=== PATIENT | female | born 1945 | race Caucasian/White ===

== ENCOUNTER 2018-07-23 05:47 | Inpatient (IN) ==
[2018-07-23] MEDS ORDERED: Sodium Chlor 0.9% Inj 500 ML IV.CONT ONE (06:45)
[2018-07-23] MEDS ORDERED: Sod Chloride 0.9% Inj 1,000 ML IV.CONT SCH ×2 (06:45→10:00)
[2018-07-23] MEDS ORDERED: Metoprolol Tartrate 25 MG Tablet PO ONE (06:45)
[2018-07-23] MEDS ORDERED: Mupirocin 2% Nasal Oint Topical Syringe EACH NARE SCH (06:45)
[2018-07-23] MEDS ORDERED: Chlorhexidine Gluconate 2% 1 Pack (2 Cloths) TOPICAL SCH (06:45)
[2018-07-23] MEDS ORDERED: Chlorhexidine Gluconate 2% 1 Pack (2 Cloths) TOPICAL ONE (06:45)
[2018-07-23] MEDS ORDERED: Aspirin 325 MG Tablet PO SCH (06:45)
[2018-07-23] MEDS ORDERED: Heparin 10,000 UNITS/10 ML Vial (for IV use) ONE (06:46)
[2018-07-23] MEDS ORDERED: Protamine Sulfate Inj 50 MG/5 ML Vial ONE (06:46)
[2018-07-23] MEDS ORDERED: ceFAZolin 2 GM Premix Inj 2 GM/50 ML PIGGYBACK IV.SIG ONE (06:46)
[2018-07-23] MEDS ORDERED: ceFAZolin 2 GM Premix Inj 2 GM/50 ML PIGGYBACK IV.SIG SCH (07:00)
[2018-07-23 07:19] LABS: Baso % (Auto) 1.2 % (0.0-2.0); Eos # (Auto) 0.2 th/mm3 (0.0-0.4); Hematocrit 36.4 % (35.0-46.0); Hemoglobin 11.9 gm/dL (11.6-15.3); Lymph # (Auto) 0.6 th/mm3 (1.0-4.8); Lymph % (Auto) 16.6 % (9.0-44.0); Mean Corpuscular HGB Conc 32.8 % (32.0-36.0); Mean Corpuscular Hemoglobin 28.6 pg (27.0-34.0); Mean Corpuscular Volume 87.4 fL (80.0-100.0); Mean Platelet Volume 7.6 fL (7.0-11.0); Mono # (Auto) 0.3 th/mm3 (0.0-0.9); Neut # (Auto) 2.3 th/mm3 (1.8-7.7); Neut % (Auto) 68.2 % (16.0-70.0); Platelet Count 158 th/mm3 (150-450); Red Blood Count 4.16 mil/mm3 (4.00-5.30); Red Cell Distribution Width 17.4 % (11.6-17.2); White Blood Count 3.4 th/mm3 (4.0-11.0)
[2018-07-23 07:31] LABS: Activated Partial Thrombo Time 29.8 sec (23.4-31.7); INR 1.1 Ratio; Prothrombin Time 10.9 sec (9.8-11.6)
[2018-07-23 07:41] LABS: Anion Gap 7 meq/L (5-15); Blood Urea Nitrogen 16 mg/dL (7-18); Calcium 8.9 mg/dL (8.5-10.1); Carbon Dioxide 29.6 meq/L (21.0-32.0); Chloride 107 meq/L (98-107); Glomerular Filtration Rate Greater Than 89 mL/min (>89); Glucose,Random 100 mg/dL (74-106); Potassium 3.4 meq/L (3.5-5.1); Sodium 144 meq/L (136-145)
--- NOTE | 2018-07-23 07:47 | P.HPCA ---
History of Present Illness Service: Cardiology Primary Care Physician: Sean Hager MD Chief Complaint: Severe aortic valve stenosis History of Present Illness: This is a 73-year-old female with past medical history of arthritis, hyperlipidemia, hypertension, osteoporosis, thyroid disease, and recent colonic bleeding who was diagnosed with severe aortic valve stenosis. Patient underwent cardiac catheterization which did not reveal hemodynamically significant obstructive coronary disease. Due to cardiovascular risk factors she was felt to be higher risk for surgical aortic valve replacement and referred for consideration of transcatheter aortic valve replacement. Patient has been cleared by gastroenterology after recent gastrointestinal bleeding episode. Patient has been compliant with both aspirin and Plavix over the course of the past 2 weeks without any bleeding. Her hemoglobins been stable. Patient is here today for elective transcatheter aortic valve replacement. - Diagnosis (1) Severe aortic valve stenosis (2) Chronic diastolic (congestive) heart failure Inpatient Certification: I certify that the inpatient services were ordered in accordance with Medicare regulations governing the order. This includes certification that hospital inpatient services are reasonable and necessary and in the case of services not specified as inpatient-only under 42 CFR 419.22(n), that they are appropriately provided as inpatient services in accordance to with the 2-midnight benchmark under 43 CFR 412.3(e) Estimated Total Length of Stay (Days): 3 Plans for Post Hospital Care: Home Review of Systems All other systems reviewed negative except as stated in [facility] - History History Provided By: Patient - Medical History Medical History: Medical History (Last Updated 07/23/18 @ 06:51 by Vida Nieves RN) GERD (gastroesophageal reflux disease) HTN (hypertension) History of GI bleed Hyperlipidemia Hypothyroid Swelling of lower extremity Uterine cancer - Tobacco History Smoking Status: Never smoker - Alcohol History How Often Do You Have a Drink Containing Alcohol: 2 to 3 times a week Medications and Allergies Active Medications: Active Medications Aspirin (Aspirin) 325 mg PO INSURANCE ACCOUNT REPRESENTATIVE KORY Stop: 07/26/18 06:36 Chlorhexidine Gluconate (Chlorhexidine 2% Cloth) 3 pack TOPICAL INSURANCE ACCOUNT REPRESENTATIVE KORY Stop: 07/26/18 06:36 Lactated Ringer's (Lr 1000 Ml Inj) 1,000 mls @ 30 mls/hr IV.CONT .Q24H ONE Stop: 07/24/18 06:44 Sodium Chloride (Ns Inj) 500 mls @ 30 mls/hr IV.CONT .[id number] ONE Stop: 07/23/18 23:24 Cefazolin Sodium/Dextrose (Ancef 2 Gm Premix Inj) 2 gm in 50 mls @ 100 mls/hr IV.SIG ONCE [facility] Stop: 07/26/18 06:36 Sodium Chloride (Ns Inj) 1,000 mls @ 125 mls/hr IV.CONT .Q8H [facility] Mupirocin (Bactroban 2% Nasal Oint) 1 applicatio EACH NARE INSURANCE ACCOUNT REPRESENTATIVE [facility] Stop: 07/26/18 06:36 Povidone Iodine (Betadine 5% Antisepsis Kit) 1 applicatio TOPICAL INSURANCE ACCOUNT REPRESENTATIVE [facility] Stop: 07/26/18 06:36 Allergies Allergy/AdvReac Type Severity Reaction Status Date / Time Sulfa (Sulfonamide Allergy Severe HIVES Verified 07/23/18 06:40 Antibiotics) Home Medications Medication Instructions Recorded Confirmed Type amlodipine 5 mg PO DAILY 07/23/18 07/23/18 History aspirin [Aspirin Low Dose] 81 mg PO DAILY 07/23/18 07/23/18 History atorvastatin 20 mg PO DAILY 07/23/18 07/23/18 History clopidogrel 75 mg PO DAILY 07/23/18 07/23/18 History famotidine 20 mg PO BID 07/23/18 07/23/18 History folic acid 1 mg PO DAILY 07/23/18 07/23/18 History leflunomide 20 mg PO DAILY 07/23/18 07/23/18 History levothyroxine 100 mcg PO DAILY 07/23/18 07/23/18 History paroxetine HCl 40 mg PO DAILY 07/23/18 07/23/18 History trazodone 50 mg PO DAILY 07/23/18 07/23/18 History Exam Vital signs: Vital Signs 07/23/18 06:44 Temperature 97.9 F Pulse Rate 78 Respiratory Rate 16 Blood Pressure 129/82 Pulse Oximetry 95 Intake & Output 07/22/18 07/23/18 07/23/18 18:59 06:59 18:59 Weight 67.8 kg Other: Weight On Admission 67.8 kg - Constitutional no acute distress - Routine HEENT Exam Eye: Present: EOMI, PERRL ENT: Present: mucous membranes moist - Routine Neck Exam Absent: JVD - Routine Respiratory Exam Present: CTA bilaterally - Routine Cardiovascular Exam Present: RRR, murmur - Routine Abdominal Exam Present: soft - Routine Extremities Exam Absent: edema - Routine Neurological Exam Present: oriented X3, CN II-XII intact. Absent: sensory deficit, motor deficit Results 07/23/18 06:25 07/23/18 06:25 CBC 07/23/18 Range/Units 06:25 WBC 3.4 L (4.0-11.0) th/mm3 RBC 4.16 (4.00-5.30) mil/mm3 Hgb 11.9 (11.6-15.3) gm/dL Hct 36.4 (35.0-46.0) % Plt Count 158 (150-450) th/mm3 Neut # (Auto) 2.3 (1.8-7.7) th/mm3 Lymph # (Auto) 0.6 L (1.0-4.8) th/mm3 Johnston # (Auto) 0.3 (0.0-0.9) th/mm3 Eos # (Auto) 0.2 (0.0-0.4) th/mm3 Baso # (Auto) 0.0 (0.0-0.2) th/mm3 Intake and Output 07/22/18 07/23/18 07/23/18 22:59 06:59 14:59 Other: Weight 67.8 kg Weight On Admission 67.8 kg EKG interpretations - Dysrhythmias Sinus rhythms and dysrhythmias: sinus rhythm Caprini VTE Risk Assessment Caprini VTE Risk Assessment: Moderate/High Risk (score >= 2) Caprini Risk Assessment Model: Point Value = 1 Point Value = 2 Point Value = 3 Point Value = 5 Age 41-60 Minor surgery BMI > 25 kg/m2 Swollen legs Varicose veins or History of unexplained or recurrent spontaneous Oral contraceptives or hormone replacement Sepsis (< 1 month) Serious lung disease, including pneumonia (< 1 month) Abnormal pulmonary function Acute myocardial infarction Congestive heart failure (< 1 month) History of inflammatory bowel disease Medical patient at bed rest Age 61-74 Arthroscopic surgery Major open surgery (> 45 min) Laparoscopic surgery (> 45 min) Malignancy Confined to bed (> 72 hours) Immobilizing plaster cast Central venous access Age >= 75 History of VTE Family history of VTE Factor V Leiden Prothrombin [id number] Lupus anticoagulant Anticardiolipin antibodies Elevated serum homocysteine Heparin-induced thrombocytopenia Other congenital or acquired thrombophilia Stroke (< 1 month) Elective arthroplasty Hip, pelvis, or leg fracture Acute spinal cord injury (< 1 month) Prophylaxis Regimen: Total Risk Factor Score Risk Level Prophylaxis Regimen 0-1 Low Early ambulation 2 Moderate Order ONE of the following: *Sequential Compression Device (SCD) *Heparin 5000 units SQ BID 3-4 Higher Order ONE of the following medications: *Heparin 5000 units SQ TID *Enoxaparin/Lovenox 40 mg SQ daily (WT < 150 kg, CrCl > 30 mL/min) *Enoxaparin/Lovenox 30 mg SQ daily (WT < 150 kg, CrCl > 10-29 mL/min) *Enoxaparin/Lovenox 30 mg SQ BID (WT < 150 kg, CrCl > 30 mL/min) AND/OR *Sequential Compression Device (SCD) 5 or more Highest Order ONE of the following medications: *Heparin 5000 units SQ TID (Preferred with Epidurals) *Enoxaparin/Lovenox 40 mg SQ daily (WT < 150 kg, CrCl > 30 mL/min) *Enoxaparin/Lovenox 30 mg SQ daily (WT < 150 kg, CrCl > 10-29 mL/min) *Enoxaparin/Lovenox 30 mg SQ BID (WT < 150 kg, CrCl > 30 mL/min) AND *Sequential Compression Device (SCD) Assessment and Plan - Assessment (1) Severe aortic valve stenosis Code(s): I35.0 - Nonrheumatic aortic (valve) stenosis Status: Acute (2) Chronic diastolic (congestive) heart failure Code(s): I50.32 - Chronic diastolic (congestive) heart failure Status: Acute - Plan This is a 73-year-old female with severe aortic valve stenosis and intermediate risk for surgical aortic valve replacement who was referred for transcatheter aortic valve replacement. Preoperative evaluation: STS score 3.2% [place] [employer] functional class III symptoms Body mass index 28.5 Frailty 3/4 Electrocardiogram normal sinus rhythm Pulmonary function test from May 22, 2018 shows an FEV1 of 1.16 showing mild ventilatory defect Echocardiogram from May 15, 2018 shows jet velocity 4.05 m/seconds, mean gradient of 35 mmHg, aortic valve area 0.6 cm, ejection fraction of 55-60% Cardiac catheterization on May 22, 2018 revealed no significant obstructive coronary disease Computed tomographic analysis from May 22, 2018 shows short annulus diameter 21.6 mm, long anus diameter 27.9 mm, annular area 486.9 mm square, sinus of Valsalva diameter 33.9 mm, sinotubular junction 28.2 mm, left coronary height 13.7 mm, right coronary height 16.1 mm, implant angle left anterior oblique 18/caudal 15 degrees, minimal luminal diameter in the right iliac system is 8.8 mm and on the left of 7.5 mm Patient is intermediate risk We will plan to implant an Miller 26 mm Marychuy S3 valve via a right common femoral arterial approach. Risk benefits and alternatives were discussed with the patient and the family. Patient is agreeable to proceed.
--- NOTE | 2018-07-23 09:37 | P.OP ---
Date of procedure: 07/23/18 Anesthesia: GETA Surgeon: Ady Mcfadden MD Operation and Findings: PREOPERATIVE DIAGNOSIS: 1. Severe Symptomatic Aortic stenosis. 2. CHF 3. Mild aortic Insufficiency 4. Right bundle branch block POSTOPERATIVE DIAGNOSIS: Same OPERATION PERFORMED: 1. Transcatheter Aortic Valve Replacement (TAVR) with an Miller 26 mm Marychuy 3 Tissue Valve. 2. Balloon Aortic Valvuloplasty 3. Aortogram. 4. Percutaneous left femoral Vein Access and Bilateral Common Femoral Artery Access 5. Perclose closure of right Common Femoral artery. 6. Mynx closure of right Common Femoral artery and vein. 7. Fluoroscopy SURGEON: Ady Mcfadden MD CO-SURGEON: Johnathon Miaer MD OPERATIONS WELDER SURGEON: None SERVICE CREW SUPERVISOR: OMID Walter MD ANESTHESIA: GETA PROCEDURE: The risks, benefits, complications, treatment options, and expected outcomes were discussed with the patient. The possibilities of reaction to medication, pulmonary aspiration, perforation of viscus, bleeding, recurrent infection, the need for additional procedures, failure to diagnose a condition, and creating a complication requiring transfusion or operation were discussed with the patient. The patient concurred with the proposed plan, giving informed consent. The site of surgery properly noted/marked. The patient was taken to the hybrid operating room and the procedure verified as Transcatheter Aortic Valve Replacement. A Time Out was held and the above information confirmed. Standard monitoring lines and John catheter were placed. General anesthesia was induced. The patient was prepped and draped in a sterile fashion. Initially, the left femoral arterial and venous access was acquired using a Seldinger percutaneous technique. The details of this procedure were dictated under separate note by cardiology. Once a pigtail was positioned in the aortic annulus and a temporary transvenous pacemaker wire was placed in the right ventricular apex and tested, the right femoral artery was accessed using a needle followed by a guidewire under fluoroscopic guidance. The patient was heparinized and 2 Perclose devices deployed for later closure. Serial dilators were used to dilate the right femoral artery to 14 Georgian caliber. The Miller sheath was then inserted into the external iliac artery up to the distal abdominal aorta. Arch aortography was performed to define the implant view. A balloon aortic valvuloplasty was then performed using a 23 x 4 balloon with rapid pacing. A 26 Miller Marychuy 3 transcatheter aortic valve was then positioned in the annulus and deployed with the patient being rapidly paced. Following deployment, the valve apparatus was withdrawn and arch aortography and MACHELLE were performed to assess the valve. The valve had no perivalvular leak. Gradients were then measured and the sheath was removed while securing the Perclose sutures for hemostasis. Protamine was administered. The left arterial and Venous access sites were closed using the Mynx device. Sterile dressings were placed. At the end of the operation, all sponge, instruments, and needle counts were correct. The patient was transferred to the CVICU in stable condition. Findings: No PVL Mild to moderate mitral insufficiency Implants: 26 Marychuy 3 tissue valve Complications: None Disposition: to CVICU in stable condition
[2018-07-23] MEDS ORDERED: hydrALAZINE HCl Inj 20 MG/ML Vial IV.PUSH PRN (09:53)
[2018-07-23] MEDS ORDERED: Morphine Sulfate Inj 2 MG/ML Vial IV.PUSH PRN (09:53)
[2018-07-23] MEDS ORDERED: Atropine Inj 1 MG/ML Vial IV.PUSH PRN (09:53)
[2018-07-23] MEDS ORDERED: Acetaminophen 325 MG Tablet PO PRN (09:53)
[2018-07-23] MEDS ORDERED: Naloxone Inj 0.4 MG/ML Vial ONE (09:59)
--- NOTE | 2018-07-23 10:23 | P.PCN ---
Date of procedure: 07/23/18 Pre-op diagnosis: Severe aortic valve stenosis Procedure: curing machine operator: Johnathon Maier MD Primary Surgeon: Ady Mcfadden MD Procedures performed: 1. Fluoroscopy with interpretation 2. Left heart catheterization 3. Ascending aortography 4. Temporary transvenous pacemaker placement 5. Transesophageal echocardiogram 6. Aortic balloon valvuloplasty 7. Transcatheter aortic valve replacement with Miller 26 mm Marychuy S3 bioprosthetic valve Methods: Risks, benefits, and alternatives were discussed with the patient. Patient understood and consented to the procedure. Patient was brought into the operating room and placed on the operating table. Bilateral groins and chest were prepped and draped. Under fluoroscopic guidance the left common femoral artery was cannulated and a 5 Somali 11 cm sheath was placed without difficulty. Left femoral vein was accessed and a 5 Somali 11 cm sheath was placed without difficulty. Right common femoral artery was cannulated under fluoroscopic and angiographic guidance through using a micropuncture sheath. Angiography confirmed appropriate placement. An 8 Somali sheath was placed without difficulty. 2 Perclose devices were deployed in a pre-close manner. The 14 Somali Miller sheath was then advanced up over the wire through the iliac system without difficulty into the descending abdominal aorta. Temporary transvenous pacemaker placement: A 5 Somali balloontipped temporary transvenous pacemaker was advanced under fluoroscopic guidance to the right internal jugular sheath to the right ventricular apex. Appropriate pacing and capture was confirmed and utilized during the procedure for rapid ventricular pacing. Transesophageal echocardiogram: Please see detailed separate report Ascending aortography: Ascending aortography was performed using an 5 Somali angled pigtail catheter advanced to the left common femoral arterial sheath to the level of the descending aorta and its the right coronary cusp. Ascending aortography was performed which showed 3 leaflets and parallax view. The descending aorta was not significantly dilated. Left heart catheterization: A 5 Somali AL-1 catheter was advanced through the right common femoral sheath to the level of the descending aorta a 0.035 inch Amplatz straight tip Super Stiff wire was then advanced across the aortic valve with some difficulty. The AL-1 catheter was advanced into the left ventricle. A 260 cm 0.035 inch standard J-wire was then advanced to the left ventricular apex and the AL-1 catheter removed. A 5 Somali angled pigtail catheter was then advanced over the J-wire into the left ventricular apex and the J-wire removed. A 0.035 inch 260 cm [employer] Confida wire was then advanced to the left ventricular apex through the pigtail catheter, and the pigtail catheter removed. Aortic balloon valvuloplasty: A 23 mm x 40 mm Miller valvuloplasty balloon was prepped. The balloon was then advanced over the [employer] Confida wire to the level of the ascending aorta and across the aortic valve. Under rapid ventricular pacing at 180 bpm the aortic valvuloplasty balloon was deployed. Repeat transesophageal echocardiogram did reveal moderate aortic regurgitation, but no pericardial effusion. Patient remained hemodynamically stable. Transcatheter aortic valve replacement: A 26 mm Miller Marychuy S3 was advanced through the right common femoral sheath to the level of the descending aorta. The balloon was pulled back into the stent valve. The device was then advanced up and over the arch to the level of the ascending aorta and across the aortic valve. The pusher component was pulled back. Appropriate positioning was confirmed with a sending aortography and fluoroscopy. Under rapid ventricular pacing, the transcatheter aortic valve was slowly deployed. Immediate post deployment transesophageal echocardiogram revealed appropriate positioning. There was no perivalvular leak or pericardial effusion. Patient tolerated the procedure with good hemodynamic stability. The delivery sheath was then removed. The right common femoral arterial sheath was removed and 2 Perclose devices deployed with good hemostasis. The left common femoral artery and venous sheaths were also removed and 2 Vascade closure devices were deployed with good hemostasis. Conclusions: 1. Severe apache aortic valve stenosis 2. Successful transcatheter aortic valve replacement with a bioprosthetic 26 mm Miller Marychuy S3 valve 3. Successful aortic balloon valvuloplasty Plan: We will monitor the patient closely for any immediate postprocedural complications. We will consult electrophysiology for evaluation of postprocedure heart rhythm. We will obtain a limited transthoracic echocardiogram. We will initiate antiplatelet therapy with aspirin and Plavix. Patient be transferred to the cardiovascular intensive care unit for further monitoring.
[2018-07-23] MEDS ORDERED: Mag Sulf 1 gm/100 ml Premix 100 ML IV.SIG ONE (10:26)
[2018-07-23] MEDS ORDERED: Iohexol Inj 350 MG/ML 100 ML Bottle (for RAD Diag) IVCONTRAST ONE (10:28)
[2018-07-23] MEDS ORDERED: Calcium Chloride Inj 1 GM/10 ML Syringe ONE (10:44)
[2018-07-23] MEDS ORDERED: fentaNYL Citrate Inj 100 MCG/2 ML Ampul ONE (10:47)
--- NOTE | 2018-07-23 10:57 | XR ---
EXAM DATE: 07/23/2018 10:48 AM EST AGE/SEX: 73 years / Female INDICATIONS: Congestion. CLINICAL DATA: This is the patient's initial encounter. Patient reports that signs and symptoms have been present for 1 day and indicates a pain score of Nonresponsive. MEDICAL/SURGICAL HISTORY: . Carcinoma, cervical. Hypertension. Cardiovascular disease. Karishma cystectomy. COMPARISON: [facility] [place], CT CHEST TRANSAORTIC VALVE REP, 06/23/2018. . FINDINGS: Postsurgical features of recent diameter. There is a right IJ pulmonary artery catheter with tip not well demonstrated beyond the distal right atrium. Diffuse airspace opacities bilaterally with indisti nct central pulmonary vascularity. Cardiac silhouette is enlarged. Remainder of exam is unchanged. CONCLUSION: 1. Right IJ pulmonary artery catheter not well demonstrated beyond the distal right atrium. 2. Cardiomegaly with pulmonary edema pattern. Electronically signed by: Anmol Becker MD 07/23/2018 10:56 AM EST
[2018-07-23] MEDS ORDERED: Sodium Bicarbonate 8.4% Inj 50 MEQ/50 ML Syringe ONE (11:34)
[2018-07-23] MEDS: Potassium Chlor 20 mEq Premix 20 MEQ/100 ML PIGGYBACK IV.SIG SCH ×2 (12:15→16:47)
--- NOTE | 2018-07-23 13:47 | ECHRPT ---
Indication: CONCLUSIONS Trileaflet aortic valve. Aortic valve sclerosis is present. Diffuse calcification of the aortic valve. Trace aortic valve regurgitation. Severe aortic valve stenosis. Status post transcatheter aortic valve replacement. BP: / HR: Rhythm: Technical Quality: Medications Complications Proc. Components FINDINGS LEFT VENTRICLE Normal left ventricular size. Moderate concentric left ventricular hypertrophy. The left ventricular systolic function is normal with an estimated ejection fraction in the range of 60-65%. RIGHT VENTRICLE Normal right ventricular size and systolic function. LEFT ATRIUM The left atrial size is normal. RIGHT ATRIUM The right atrial size is normal. ATRIAL SEPTUM Normal atrial septal thickness. A patent foramen ovale is present with a bidirectional shunt demonstrated by color flow Doppler interrogation. AORTA The aortic root and proximal ascending aorta are normal in size on limited imaging. MITRAL VALVE Structurally normal mitral valve. No mitral valve stenosis or regurgitation. AORTIC VALVE Trileaflet aortic valve. Aortic valve sclerosis is present. Diffuse calcification of the aortic valve. Trace aortic valve regurgitation. Severe aortic valve stenosis. Status post transcatheter aortic valve replacement TRICUSPID VALVE Structurally normal tricuspid valve. No tricuspid valve stenosis or regurgitation. VESSELS The inferior vena cava is normal in size. PULMONARY VALVE The pulmonary valve is not well visualized. PERICADIUM No pericardial effusion. Johnathon Maier MD, FACC (Electronically Signed) Final Date:23 July 2018 13:45
[2018-07-23] MEDS ORDERED: Magnesium Sulfate Inj 2 GM in Sodium Chlor 0.9% Inj 100 ML IV.SIG ONE (14:00)
[2018-07-23] MEDS ORDERED: Calcium Chloride Inj 1 GM in Sodium Chlor 0.9% Inj 100 ML IV.SIG ONE (16:00)
[2018-07-23] MEDS ORDERED: Phenylephrine/NS 1000 MCG/10ML Syringe IV.PUSH ONE (16:25)
[2018-07-23] MEDS ORDERED: Succinylcholine Inj 100 MG/5 ML Syringe IV.PUSH ONE (16:25)
--- NOTE | 2018-07-23 17:46 | ECG ---
Date Performed: 07/23/2018 Time Performed: 11:03:58 PTAGE: 73 years EKG: Demand pacing Pacemaker rhythm - no further analysis Abnormal ECG NO PREVIOUS TRACING DOCTOR: Guanakito Strickland Interpretating Date/Time 07/23/2018 17:45:34
--- NOTE | 2018-07-23 18:37 | ECG ---
Date Performed: 07/23/2018 Time Performed: 06:13:24 PTAGE: 73 years EKG: Sinus rhythm Right bundle branch block Possible left ventricular hypertrophy Inferior/lateral ST-T changes are po ssibly due to ventricular hypertrophy versus consider anterolateral myocardial ischemia Abnormal ECG NO PREVIOUS TRACING DOCTOR: Guanakito Strickland Interpretating Date/Time 07/23/2018 18:36:31
--- NOTE | 2018-07-23 19:30 | P.CONCC ---
History of Present Illness Service: Critical Care Medicine Consult date: 07/23/18 Requesting Physician: Johnathon Maier Reason for Consult: acute hypoxemia Primary Care Provider: Sean Hager MD Chief Complaint: Severe aortic valve stenosis History of Present Illness: This is a 73yF with history of COPD and severe aortic stenosis who underwent elective TAVR today via groin access. her operation was complicated by complete heart block requiring transvenous pacing. She was extubated at the end of the case and taken to the CVICU. On arrival to the CVICU she was profoundly hypoxemic. I evaluated the patient immediately. her spo2 was 61%. she was awake and conversant, but dyspneic. still arousing from anesthesia so complete ROS unobtainable, but denies chest pain, headache, sore throat, nausea, vomiting. does endorse SOB. ABG demonstrates severe hypercarbia and resp acidosis: pH 7.1 , pco2 90. immediately placed on 100% fio2 BiPAP. CXR demonstrates bilateral infiltrates concerning for acute pulmonary edema. given 40mg lasix iv x 1 emergently. She began to respond to BiPAP and over the course of the next 2 hours her oxygenation improved and her hypercarbic respiratory failure began to improve. Review of Systems unobtainable due to mental status (limited by arousal from anesthesia) PMFSH - History History Provided By: Patient, Medical Record - Medical History Medical History: Medical History (Last Reviewed 07/23/18 @ 19:25 by Kev Iverson MD) GERD (gastroesophageal reflux disease) HTN (hypertension) History of GI bleed Hyperlipidemia Hypothyroid Swelling of lower extremity Uterine cancer - Social History I have reviewed the patient's Social History: Yes - Tobacco History Smoking Status: Never smoker - Alcohol History How Often Do You Have a Drink Containing Alcohol: 2 to 3 times a week Medications and Allergies Active Medications: Active Medications Acetaminophen (Tylenol) 650 mg PO Q4H PRN PRN Reason: PAIN SCALE 1 TO 2 Stop: 07/24/18 09:52 Aspirin (Aspirin) 325 mg PO [facility] Stop: 07/26/18 06:36 Aspirin (Aspirin Chew) 81 mg PO DAILY [facility] Atropine Sulfate (Atropine Inj) 0.5 mg IV.PUSH UNSCH PRN PRN Reason: VAGAL REPONSE Stop: 07/24/18 09:52 Chlorhexidine Gluconate (Chlorhexidine 2% Cloth) 3 pack TOPICAL [facility] Stop: 07/26/18 06:36 Clonidine HCl (Catapres) 0.2 mg PO Q6H PRN PRN Reason: SBP > 160 mmHg Clopidogrel Bisulfate (Plavix) 75 mg PO DAILY [facility] Ferrous Sulfate (Ferosul) 325 mg PO DAILY [facility] Hydralazine HCl (Apresoline Inj) 10 mg IV.PUSH Q30M PRN PRN Reason: SBP > 160 mmHg Cefazolin Sodium/Dextrose (Ancef 2 Gm Premix Inj) 2 gm in 50 mls @ 100 mls/hr IV.SIG ONCE [facility] Stop: 07/26/18 06:36 Last Infusion: 07/23/18 08:15 Dose: Infused Morphine Sulfate (Morphine Inj) 2 mg IV.PUSH Q30M PRN PRN Reason: BREAKTHROUGH PAIN Mupirocin (Bactroban 2% Nasal Oint) 1 applicatio EACH NARE [facility] Stop: 07/26/18 06:36 Ondansetron HCl (Zofran Inj) 4 mg IV.PUSH Q6H PRN PRN Reason: NAUSEA OR VOMITING Oxycodone/Acetaminophen (Percocet 5/325 Mg) 1 tab PO Q6H PRN PRN Reason: PAIN SCALE 3 TO 5 Povidone Iodine (Betadine 5% Antisepsis Kit) 1 applicatio TOPICAL [facility] Stop: 07/26/18 06:36 Allergies Allergy/AdvReac Type Severity Reaction Status Date / Time Sulfa (Sulfonamide Allergy Severe HIVES Verified 07/23/18 06:40 Antibiotics) Home Medications Medication Instructions Recorded Confirmed Type amlodipine 5 mg PO DAILY 07/23/18 07/23/18 History aspirin [Aspirin Low Dose] 81 mg PO DAILY 07/23/18 07/23/18 History atorvastatin 20 mg PO DAILY 07/23/18 07/23/18 History clopidogrel 75 mg PO DAILY 07/23/18 07/23/18 History famotidine 20 mg PO BID 07/23/18 07/23/18 History folic acid 1 mg PO DAILY 07/23/18 07/23/18 History leflunomide 20 mg PO DAILY 07/23/18 07/23/18 History levothyroxine 100 mcg PO DAILY 07/23/18 07/23/18 History paroxetine HCl 40 mg PO DAILY 07/23/18 07/23/18 History trazodone 50 mg PO DAILY 07/23/18 07/23/18 History Physical Exam Vital signs: Vital Signs 07/23/18 06:44 07/23/18 10:12 07/23/18 10:15 Temperature 36.6 C 35.7 C L Pulse Rate 78 79 Respiratory Rate 16 18 Blood Pressure 129/82 Pulse Oximetry 95 82 L 07/23/18 10:41 07/23/18 11:00 07/23/18 11:09 Temperature 35.8 C L 35.8 C L Pulse Rate 68 70 Respiratory Rate 20 Blood Pressure 97/51 L Pulse Oximetry 95 07/23/18 11:13 07/23/18 12:45 07/23/18 13:14 Temperature 35.8 C L 36.4 C Pulse Rate Respiratory Rate Blood Pressure Pulse Oximetry 94 L 07/23/18 15:00 07/23/18 16:00 07/23/18 18:08 Temperature 37.0 C Pulse Rate 69 Respiratory Rate 11 L 13 Blood Pressure 112/66 Pulse Oximetry 97 99 Intake & Output 07/23/18 07/23/18 07/24/18 06:59 18:59 06:59 Intake Total 1966 / 1965 100 / 100 Output Total 890 / 890 Balance 1074 / 1074 100 / 100 Weight 67.8 kg Intake: IV 364 / 364 100 / 100 Calcium Chloride Inj 1 GM In NS 110 / 110 Inj 100 ML @ 110 mls/hr IV.SIG ONCE ONE Rx#:[id number] Magnesium Sulfate Inj 2 GM In 104 / 104 NS Inj 100 ML @ 52 mls/hr IV. SIG ONCE ONE Rx#:[id number] KCl 20 mEq Premix Inj 20 meq In 100 / 100 100 / 100 100 ml @ 50 mls/hr IV.SIG Q2H [facility] Rx#:[id number] Ancef 2 GM Premix Inj 2 gm In 50 / 50 50 ml @ 100 mls/hr IV.SIG ONCE [facility] Rx#:[id number] Anesthesia Amount 1600 / 1600 Output: Estimated Blood Loss 30 / 30 Urine Amount (Catheter) 860 / 860 Indwelling Temp Sensing 860 / 860 Catheter Other: Weight On Admission 67.8 kg Narrative: gen: elderly female in acute respiratory distress, cyanotic heent: nc at. perrl. mmm. neck: no jvd. trachea midline. right IJ sheath with transvenous pacer in place, site c/d/i. chest: tachypneic, labored, using accessory muscles. bilateral coarse rales. cv: transvenous pacer in place. pacer dependent. VVI @ 80. paced rhythm. abd: soft, nontender, nondistended, no guarding. extr: bilateral groin sites with dressings c/d/i. no hematoma. distal pulses palpable. neuro: RASS -1. arousing from anesthesia. in distress. follows commands. - Urinary Catheter Management Indwelling Temp Sensing Catheter Cath placed during this visit: yes Reason for continuing: Hourly intake/output Insertion date: 07/23/18 Insertion time: 07:40 Assessment and Plan - Assessment and Plan Plan: Assessment: 73yF POD 0 s/p TAVR via groin access, complicated by third degree heart block and acute severe pulmonary edema with associated hypoxic respiratory failure. differential diagnosis would include negative pressure pulmonary edema from diastolic heart failure exacerbation vs. protamine- associated pulmonary edema. continue bipap and supportive care. Acute hypoxic and hypercarbic respiratory failure Acute severe pulmonary edema COPD - nebs - bipap - wean fio2 for goal spo2 > 90% - lasix 40mg iv x 1 - serial abg Third degree heart block - keep transvenous pacer - VVI @ 80 - needs permanent pacemaker, however given acute respiratory distress, would prefer to delay pacemaker placement until tomorrow to see if we can stabilize her respiratory function s/p TAVR 07/23 via groin access - hold mivf - lasix as above - anticoagulation per Dr. Maier - close uop monitoring - groin watch Critically ill post-TAVR requiring immediate and emergent evaluation and management for life-threatening hypoxemia. Critical care time: 68 minutes, exclusive of separately billable procedures.
--- NOTE | 2018-07-23 19:32 | P.PCN ---
Date of procedure: 07/23/18 Procedure: Procedure: Transesophageal Echocardiography Diagnosis: Severe aortic stenosis Indications: Perioperative planning for transcatheter aortic valve replacement Consent: Obtained Anesthesia: General endotracheal anesthesia Description of the Procedure: The patient was sedated and mechanically ventilated. The echo probe was inserted easily and without resistance. At the conclusion of the procedure, the echo probe was removed. Please see detailed echocardiogram report for formal findings. Preliminary Findings (not confirmed): pre-procedure: 1) grossly preserved biventricular function 2) severe left ventricular hypertrophy 3) severe aortic stenosis 4) continuous [id number] intra-atrial shunting by color flow Doppler 5) trace Aortic regurgitation 6) trace mitral regurgitation 7) moderate tricuspid regurgitation 8) no pericardial effusion Post-procedure: 1) s/p successful placement of transcatheter aortic valve 2) no perivalvular leak 3) mild mitral regurgitation 4) no pericardial effusion The patient tolerated the procedure well with no hemodynamic instability. There were no immediate complications noted. There was minimal EBL. I personally performed the procedure.
[2018-07-24 05:14] LABS: Hematocrit 31.7 % (35.0-46.0); Hemoglobin 10.4 gm/dL (11.6-15.3); Mean Corpuscular HGB Conc 32.9 % (32.0-36.0); Mean Corpuscular Volume 88.3 fL (80.0-100.0); Mean Platelet Volume 8.9 fL (7.0-11.0); Platelet Count 155 th/mm3 (150-450); Red Blood Count 3.59 mil/mm3 (4.00-5.30); Red Cell Distribution Width 17.3 % (11.6-17.2); White Blood Count 7.4 th/mm3 (4.0-11.0)
[2018-07-24 05:53] LABS: Anion Gap 8 meq/L (5-15)
[2018-07-24 05:59] LABS: Alanine Aminotransferase 19 U/L (10-53); Albumin 2.7 g/dL (3.4-5.0); Alkaline Phosphatase 106 U/L (45-117); Aspartate Aminotransferase 56 U/L (15-37); Blood Urea Nitrogen 12 mg/dL (7-18); Carbon Dioxide 27.2 meq/L (21.0-32.0); Chloride 106 meq/L (98-107); Glomerular Filtration Rate Greater Than 89 mL/min (>89); Glucose,Random 80 mg/dL (74-106); Potassium 4.1 meq/L (3.5-5.1); Sodium 141 meq/L (136-145); Total Protein 6.3 g/dL (6.4-8.2)
--- NOTE | 2018-07-24 07:47 | P.PNCV ---
- Note Subjective/Hospital Course: Hemodynamically stable. Continues to be paced Remains on BiPAP For permanent pacemaker today Nyla fernandez Objective: Vital Signs - 24 hr 07/23/18 10:12 07/23/18 10:15 07/23/18 10:41 Temperature 96.2 F L 96.4 F L Pulse Rate 79 Respiratory Rate 18 Blood Pressure Pulse Oximetry 82 L 07/23/18 11:00 07/23/18 11:09 07/23/18 11:13 Temperature 96.5 F L 96.5 F L Pulse Rate 68 70 Respiratory Rate 20 Blood Pressure 97/51 L Pulse Oximetry 95 07/23/18 12:45 07/23/18 13:14 07/23/18 15:00 Temperature 97.6 F 98.6 F Pulse Rate 69 Respiratory Rate 11 L Blood Pressure 112/66 Pulse Oximetry 94 L 97 07/23/18 16:00 07/23/18 18:08 07/23/18 19:00 Temperature 97.6 F Pulse Rate 69 Respiratory Rate 13 21 Blood Pressure 128/56 L Pulse Oximetry 99 98 07/23/18 20:07 07/23/18 21:27 07/23/18 23:00 Temperature 98.6 F 98.0 F Pulse Rate 69 Respiratory Rate 20 Blood Pressure 128/58 L Pulse Oximetry 98 95 07/24/18 00:35 07/24/18 03:00 07/24/18 04:49 Temperature 98.5 F 98.6 F Pulse Rate 69 Respiratory Rate 20 Blood Pressure 125/48 L Pulse Oximetry 94 L 95 07/24/18 05:42 07/24/18 07:00 Temperature 98.2 F Pulse Rate 69 Respiratory Rate 20 Blood Pressure 103/57 L Pulse Oximetry 96 94 L Labs: Laboratory Results - last 12 hr 07/23/18 07/24/18 07/24/18 06:53 04:45 04:45 WBC 7.4 D RBC 3.59 L Hgb 10.4 L Hct 31.7 L MCV 88.3 MCH 29.0 MCHC 32.9 RDW 17.3 H Plt Count 155 MPV 8.9 Sodium 141 Potassium 4.1 Chloride 106 Carbon Dioxide 27.2 Anion Gap 8 BUN 12 Creatinine 0.54 Estimated GFR Greater than 89 Random Glucose 80 Calcium 8.0 L D Total Bilirubin 0.5 AST 56 H ALT 19 Alkaline Phosphatase 106 Total Protein 6.3 L Albumin 2.7 L MTS Gel Crossmatch See Detail Result Diagrams: 07/24/18 04:45 07/24/18 04:45
--- NOTE | 2018-07-24 07:55 | P.PNCA ---
Subjective Interval history: Limited echo being performed. On Bipap w/ O2 sat 97. Dyspnea improved some, but still present. Feels like she is holding on to fluid. Remains in paced rhythm, for PPM this afternoon. No issues w/ groin access sites. Medications and Allergies Allergies Allergy/AdvReac Type Severity Reaction Status Date / Time Sulfa (Sulfonamide Allergy Severe HIVES Verified 07/23/18 06:40 Antibiotics) Home Medications Medication Instructions Recorded Confirmed Type amlodipine 5 mg PO DAILY 07/23/18 07/23/18 History aspirin [Aspirin Low Dose] 81 mg PO DAILY 07/23/18 07/23/18 History atorvastatin 20 mg PO DAILY 07/23/18 07/23/18 History clopidogrel 75 mg PO DAILY 07/23/18 07/23/18 History famotidine 20 mg PO BID 07/23/18 07/23/18 History folic acid 1 mg PO DAILY 07/23/18 07/23/18 History leflunomide 20 mg PO DAILY 07/23/18 07/23/18 History levothyroxine 100 mcg PO DAILY 07/23/18 07/23/18 History paroxetine HCl 40 mg PO DAILY 07/23/18 07/23/18 History trazodone 50 mg PO DAILY 07/23/18 07/23/18 History Active Medications: Active Medications Acetaminophen (Tylenol) 650 mg PO Q4H PRN PRN Reason: PAIN SCALE 1 TO 2 Stop: 07/24/18 09:52 Aspirin (Aspirin) 325 mg PO [facility] Stop: 07/26/18 06:36 Aspirin (Aspirin Chew) 81 mg PO DAILY [facility] Atropine Sulfate (Atropine Inj) 0.5 mg IV.PUSH UNSCH PRN PRN Reason: VAGAL REPONSE Stop: 07/24/18 09:52 Chlorhexidine Gluconate (Chlorhexidine 2% Cloth) 3 pack [facility]ICAL [employer] [facility] Stop: 07/26/18 06:36 Clonidine HCl (Catapres) 0.2 mg PO Q6H PRN PRN Reason: SBP > 160 mmHg Clopidogrel Bisulfate (Plavix) 75 mg PO DAILY [facility] Ferrous Sulfate (Ferosul) 325 mg PO DAILY [facility] Hydralazine HCl (Apresoline Inj) 10 mg IV.PUSH Q30M PRN PRN Reason: SBP > 160 mmHg Cefazolin Sodium/Dextrose (Ancef 2 Gm Premix Inj) 2 gm in 50 mls @ 100 mls/hr IV.SIG ONCE [facility] Stop: 07/26/18 06:36 Last Infusion: 07/23/18 08:15 Dose: Infused Morphine Sulfate (Morphine Inj) 2 mg IV.PUSH Q30M PRN PRN Reason: BREAKTHROUGH PAIN Mupirocin (Bactroban 2% Nasal Oint) 1 applicatio EACH NARE [employer] Stop: 07/26/18 06:36 Ondansetron HCl (Zofran Inj) 4 mg IV.PUSH Q6H PRN PRN Reason: NAUSEA OR VOMITING Oxycodone/Acetaminophen (Percocet 5/325 Mg) 1 tab PO Q6H PRN PRN Reason: PAIN SCALE 3 TO 5 Povidone Iodine (Betadine 5% Antisepsis Kit) 1 applicatio [employer] Stop: 07/26/18 06:36 Physical Exam Vital signs: Vital Signs 07/23/18 10:12 07/23/18 10:15 07/23/18 10:41 Temperature 96.2 F L 96.4 F L Pulse Rate 79 Respiratory Rate 18 Blood Pressure Pulse Oximetry 82 L 07/23/18 11:00 07/23/18 11:09 07/23/18 11:13 Temperature 96.5 F L 96.5 F L Pulse Rate 68 70 Respiratory Rate 20 Blood Pressure 97/51 L Pulse Oximetry 95 07/23/18 12:45 07/23/18 13:14 07/23/18 15:00 Temperature 97.6 F 98.6 F Pulse Rate 69 Respiratory Rate 11 L Blood Pressure 112/66 Pulse Oximetry 94 L 97 07/23/18 16:00 07/23/18 18:08 07/23/18 19:00 Temperature 97.6 F Pulse Rate 69 Respiratory Rate 13 21 Blood Pressure 128/56 L Pulse Oximetry 99 98 07/23/18 20:07 07/23/18 21:27 07/23/18 23:00 Temperature 98.6 F 98.0 F Pulse Rate 69 Respiratory Rate 20 Blood Pressure 128/58 L Pulse Oximetry 98 95 07/24/18 00:35 07/24/18 03:00 07/24/18 04:49 Temperature 98.5 F 98.6 F Pulse Rate 69 Respiratory Rate 20 Blood Pressure 125/48 L Pulse Oximetry 94 L 95 07/24/18 05:42 07/24/18 07:00 Temperature 98.2 F Pulse Rate 69 Respiratory Rate 20 Blood Pressure 103/57 L Pulse Oximetry 96 94 L Intake & Output 07/23/18 07/24/18 07/24/18 18:59 06:59 18:59 Intake Total 1965 / 1963 580 / 580 Output Total 890 / 890 380 / 380 Balance 1074 / 1074 200 / 200 Weight 152 lb 1.903 oz Intake: IV 364 / 364 100 / 100 Calcium Chloride Inj 1 GM In NS 110 / 110 Inj 100 ML @ 110 mls/hr IV.SIG ONCE ONE Rx#:[id number] Magnesium Sulfate Inj 2 GM In 104 / 104 NS Inj 100 ML @ 52 mls/hr IV. SIG ONCE ONE Rx#:[id number] KCl 20 mEq Premix Inj 20 meq In 100 / 100 100 / 100 100 ml @ 50 mls/hr IV.SIG Q2H [facility] Rx#:[id number] Ancef 2 GM Premix Inj 2 gm In 50 / 50 50 ml @ 100 mls/hr IV.SIG ONCE [facility] Rx#:[id number] Oral 480 / 480 Anesthesia Amount 1600 / 1600 Output: Estimated Blood Loss 30 / 30 Urine Amount (Catheter) 860 / 860 380 / 380 Indwelling Temp Sensing 860 / 860 380 / 380 Catheter Narrative: GENERAL: Well-developed well-nourished. Currently appears stable. NECK: No carotid bruits. No JVD. CARDIOVASCULAR: Regular rate and rhythm. Gray valve sounds appreciated. RESPIRATORY: Appears mildly dyspneic and uncomfortable on BiPAP. Clear to auscultation. Breath sounds equal bilaterally. MUSCULOSKELETAL: No clubbing or cyanosis. Trace lower extremity edema. Minimal groin ecchymosis with intact femoral pulses. NEUROLOGICAL: Awake and alert. Normal speech. - Urinary Catheter Management Indwelling Temp Sensing Catheter Cath placed during this visit: yes, but has since been removed by the nurse Reason for continuing: Decision to DC catheter Insertion date: 07/23/18 Insertion time: 07:40 Removal date: 07/24/18 Removal time: 06:00 Results 07/24/18 04:45 07/24/18 04:45 Cardiac Enzymes 07/24/18 Range/Units 04:45 AST 56 H (15-37) U/L Coagulation 07/23/18 Range/Units 06:25 PT 10.9 (9.8-11.6) sec APTT 29.8 (23.4-31.7) sec CBC 07/23/18 07/24/18 Range/Units 06:25 04:45 WBC 3.4 L 7.4 D (4.0-11.0) th/mm3 RBC 4.16 3.59 L (4.00-5.30) mil/mm3 Hgb 11.9 10.4 L (11.6-15.3) gm/dL Hct 36.4 31.7 L (35.0-46.0) % Plt Count 158 155 (150-450) th/mm3 Neut # (Auto) 2.3 (1.8-7.7) th/mm3 Lymph # (Auto) 0.6 L (1.0-4.8) th/mm3 [place] # (Auto) 0.3 (0.0-0.9) th/mm3 Eos # (Auto) 0.2 (0.0-0.4) th/mm3 Baso # (Auto) 0.0 (0.0-0.2) th/mm3 Comprehensive Metabolic Panel 07/23/18 07/24/18 Range/Units 06:25 04:45 Sodium 144 141 (136-145) meq/L Potassium 3.4 L D 4.1 (3.5-5.1) meq/L Chloride 107 106 (98-107) meq/L Carbon Dioxide 29.6 27.2 (21.0-32.0) meq/L BUN 16 12 (7-18) mg/dL Creatinine 0.54 0.54 (0.50-1.00) mg/dL Calcium 8.9 8.0 L D (8.5-10.1) mg/dL AST 56 H (15-37) U/L ALT 19 (10-53) U/L Alkaline Phosphatase 106 (45-117) U/L Total Protein 6.3 L (6.4-8.2) g/dL Albumin 2.7 L (3.4-5.0) g/dL Intake and Output 07/23/18 07/24/18 07/24/18 22:59 06:59 14:59 Intake Total 100 / 100 480 / 480 Output Total 800 / 800 380 / 380 Balance -700 / -700 100 / 100 Intake: IV 100 / 100 KCl 20 mEq Premix Inj 20 meq In 100 / 100 100 ml @ 50 mls/hr IV.SIG Q2H [facility] Rx#:[id number] Oral 480 / 480 Output: Urine Amount (Catheter) 800 / 800 380 / 380 Indwelling Temp Sensing 800 / 800 380 / 380 Catheter Other: Weight 152 lb 1.903 oz - Imaging and Cardiology Imaging: Impressions Chest X-Ray 07/23/18 00:00 CONCLUSION: 1. Right IJ pulmonary artery catheter not well demonstrated beyond the distal right atrium. 2. Cardiomegaly with pulmonary edema pattern. Assessment and Plan - Assessment (1) Severe aortic valve stenosis Code(s): I35.0 - Nonrheumatic aortic (valve) stenosis Status: Acute (2) Chronic diastolic (congestive) heart failure Code(s): I50.32 - Chronic diastolic (congestive) heart failure Status: Acute - Plan This is a 73-year-old female with severe aortic valve stenosis and intermediate risk for surgical aortic valve replacement who was referred for transcatheter aortic valve replacement. Preoperative evaluation: STS score 3.2% [place] [employer] functional class III symptoms Body mass index 28.5 Frailty 3/4 Electrocardiogram normal sinus rhythm Pulmonary function test from May 22, 2018 shows an FEV1 of 1.16 showing mild ventilatory defect Echocardiogram from May 15, 2018 shows jet velocity 4.05 m/seconds, mean gradient of 35 mmHg, aortic valve area 0.6 cm, ejection fraction of 55-60% Cardiac catheterization on May 22, 2018 revealed no significant obstructive coronary disease Computed tomographic analysis from May 22, 2018 shows short annulus diameter 21.6 mm, long anus diameter 27.9 mm, annular area 486.9 mm square, sinus of Valsalva diameter 33.9 mm, sinotubular junction 28.2 mm, left coronary height 13.7 mm, right coronary height 16.1 mm, implant angle left anterior oblique 18/caudal 15 degrees, minimal luminal diameter in the right iliac system is 8.8 mm and on the left of 7.5 mm Patient is intermediate risk Performed TAVR with Miller 26 mm Marychuy S3 valve via a right common femoral arterial approach. 07/24: Acute respiratory distress status post TAVR, due to diastolic CHF, critical care on board, currently on BiPAP. s/p 60 mg total IV Lasix yesterday with 1200 cc output, consider additional diuresis today Complete heart block requiring transvenous pacing, EP on board with plans for pacemaker placement this afternoon Discussed Condition With: Patient, RN, Dr. Maier - Attending Attestation Agree with above Transthoracic echocardiogram looks good. Patient is now on nasal cannula and comfortable. Lungs clear to auscultation with minimal faint basilar crackles. Probable flash pulmonary edema during the procedure which is now recovered. Acute on chronic diastolic congestive heart failure Gentle diuresis Plan for permanent pacemaker today Anticipate discharge tomorrow
[2018-07-24] MEDS: Ferrous Sulfate 325 MG Tablet PO SCH (08:40)
--- NOTE | 2018-07-24 10:27 | ECHRPT ---
Indication: POST TAVR CONCLUSIONS Normal left ventricular size. Wall thickness is normal. No regional wall motion abnormalities are present. The left atrial size is moderately dilated. The right atrial size is moderately dilated. Mild mitral regurgitationStatus post transcatheter aortic valve replacement Normally functioning bioprosthetic aortic valve No perivalvular leakThere is moderate tricuspid regurgitation. The pulmonary valve is not well visualized. BP: / HR: Rhythm: Sinus MEASUREMENTS (Male / Female) Normal Values Technical Quality:Poor 2D ECHO LVOT Diameter 1.6 cm LV Ejection Fraction MOD 4C 61.0 % LV Ejection Fraction 4C AL 63.8 % M-MODE Aortic Root Diameter MM 2.0 cm AV Cusp Separation MM 1.3 cm DOPPLER AV Peak Velocity 262.0 cm/s AV Peak Gradient 27.5 mmHg AV Mean Gradient 14.0 mmHg AV Velocity Time Integral 44.4 cm LVOT Peak Velocity 156.0 cm/s LVOT Peak Gradient 9.7 mmHg LVOT Velocity Time Integral 25.6 cm AV Area Cont Eq vti 1.2 cm AV Area Cont Eq pk 1.2 cm FINDINGS LEFT VENTRICLE The left ventricular systolic function is normal with an estimated ejection fraction in the range of 60-65%. Normal left ventricular size. Wall thickness is normal. No regional wall motion abnormalities are present. RIGHT VENTRICLE Normal right ventricular size and systolic function. LEFT ATRIUM The left atrial size is moderately dilated. RIGHT ATRIUM The right atrial size is moderately dilated. ATRIAL SEPTUM Normal atrial septal thickness without atrial level shunting by limited color doppler interrogation. AORTA The aortic root and proximal ascending aorta are normal in size on limited imaging. MITRAL VALVE Mild mitral regurgitation AORTIC VALVE Status post transcatheter aortic valve replacement Normally functioning bioprosthetic aortic valve No perivalvular leak TRICUSPID VALVE There is moderate tricuspid regurgitation. PULMONARY VALVE The pulmonary valve is not well visualized. VESSELS The inferior vena cava is normal in size. PERICARDIUM No pericardial effusion. Johnathon Maier MD, FACC (Electronically Signed) Final Date:24 July 2018 10:26
--- NOTE | 2018-07-24 11:16 | MB ---
cc: Dafne Woods MD DATE: 07/23/2018 REASON FOR CONSULTATION: Complete AV block, status post transcatheter aortic valve replacement (TAVR). HISTORY OF PRESENT ILLNESS: Mrs. Rodriguez is a 73-year-old female with a history of aortic stenosis, high blood pressure, hyperlipidemia, previous history of uterine cancer will undergo a transcatheter aortic valve replacement. During the procedure, developed complete AV block. Was pacing. I was consulted for evaluation and management. The chart was reviewed. The patient was evaluated. ALLERGIES: SULFA. SOCIAL HISTORY: Negative for smoking and drinking. FAMILY HISTORY: Noncontributory to her current medical condition. MEDICATIONS: She is on aspirin. She is on Plavix. She did receive during the procedure also. She is on potassium. Ancef was given. REVIEW OF SYSTEMS: The patient with a little bit of tiredness. PHYSICAL EXAMINATION: GENERAL: Alert. Follow verbal oriented. She has a BiPAP mask. She was acidotic. VITAL SIGNS: Blood pressure 110/54, pulse 70 pacing, respiratory rate 20-22. As mentioned before, she has a BiPAP mask. LUNGS: Ventilated. CARDIOVASCULAR: S1, S2, regular, jugular area of a central line with a temporary pacing. ABDOMEN: Soft. No mass or bruit. EXTREMITIES: No edema. ELECTROCARDIOGRAM: V pacing. LABORATORY DATA: Hemoglobin 11.9, white blood cell 3.4. INR 1.04, potassium 3.4, creatinine 0.54. ASSESSMENT AND RECOMMENDATIONS: Mrs. Rodriguez as aortic valve replacement. She has complete AV block. She is V pacing device. I decreased the heart rate, although at 30. There was no intrinsic rhythm. She is going to need a pacemaker. The risks, the nature and the benefits of the procedure are clearly stated to her. Recently pneumothorax, cardiac perforation, stroke and even . She definitely agreed to proceed . At this point, I am going to wait for the patient to be more stable. If they decide to intubate the patient, in the morning I will reevaluate her to decide when to proceed. Dafne Woods MD HS/em , 08:36 AM , 08:46 AM
--- NOTE | 2018-07-24 13:16 | P.PNCC ---
Subjective Subjective Remarks/Hospital Course: 07/23: This is a 73yF with history of COPD and severe aortic stenosis who underwent elective TAVR today via groin access. her operation was complicated by complete heart block requiring transvenous pacing. She was extubated at the end of the case and taken to the CVICU. On arrival to the CVICU she was profoundly hypoxemic. I evaluated the patient immediately. her spo2 was 61%. she was awake and conversant, but dyspneic. still arousing from anesthesia so complete ROS unobtainable, but denies chest pain, headache, sore throat, nausea , vomiting. does endorse SOB. ABG demonstrates severe hypercarbia and resp acidosis: pH 7.1, pco2 90. immediately placed on 100% fio2 BiPAP. CXR demonstrates bilateral infiltrates concerning for acute pulmonary edema. given 40mg lasix iv x 1 emergently. She began to respond to BiPAP and over the course of the next 2 hours her oxygenation improved and her hypercarbic respiratory failure began to improve. 07/24: Off BiPAP since this morning on nasal cannula. Denies any shortness of breath. Appears comfortable. Transvenous pacer in place at the time of my evaluation. Awaiting permanent pacer placement. Objective Vital Signs / I&O: Vital Signs 07/23/18 13:14 07/23/18 15:00 07/23/18 16:00 Temperature 97.6 F 98.6 F Pulse Rate 69 Respiratory Rate 11 L 13 Blood Pressure 112/66 Pulse Oximetry 97 07/23/18 18:08 07/23/18 19:00 07/23/18 20:07 Temperature 97.6 F Pulse Rate 69 Respiratory Rate 21 Blood Pressure 128/56 L Pulse Oximetry 99 98 98 07/23/18 21:27 07/23/18 23:00 07/24/18 00:35 Temperature 98.6 F 98.0 F Pulse Rate 69 Respiratory Rate 20 Blood Pressure 128/58 L Pulse Oximetry 95 94 L 07/24/18 03:00 07/24/18 04:49 07/24/18 05:42 Temperature 98.5 F 98.6 F Pulse Rate 69 Respiratory Rate 20 Blood Pressure 125/48 L Pulse Oximetry 95 96 07/24/18 07:00 07/24/18 09:58 07/24/18 11:00 Temperature 98.2 F 98.1 F Pulse Rate 69 69 Respiratory Rate 20 18 Blood Pressure 103/57 L 116/55 L Pulse Oximetry 94 L 94 L 94 L Intake & Output 07/23/18 07/24/18 07/24/18 18:59 06:59 18:59 Intake Total 1964 / 1964 580 / 580 Output Total 890 / 890 380 / 380 Balance 1074 / 1074 200 / 200 Weight 69 kg Intake: IV 364 / 364 100 / 100 Calcium Chloride Inj 1 GM In NS 110 / 110 Inj 100 ML @ 110 mls/hr IV.SIG ONCE ONE Rx#:[id number] Magnesium Sulfate Inj 2 GM In 104 / 104 NS Inj 100 ML @ 52 mls/hr IV. SIG ONCE ONE Rx#:[id number] KCl 20 mEq Premix Inj 20 meq In 100 / 100 100 / 100 100 ml @ 50 mls/hr IV.SIG Q2H KORY Rx#:[id number] Ancef 2 GM Premix Inj 2 gm In 50 / 50 50 ml @ 100 mls/hr IV.SIG ONCE KORY Rx#:[id number] Oral 480 / 480 Anesthesia Amount 1600 / 1600 Output: Estimated Blood Loss 30 / 30 Urine Amount (Catheter) 860 / 860 380 / 380 Indwelling Temp Sensing 860 / 860 380 / 380 Catheter Result Diagrams: 07/24/18 04:45 07/24/18 04:45 Objective Remarks: gen: elderly female laying in bed in no acute distress heent: nc at. perrl. mmm. neck: no jvd. trachea midline. right IJ sheath with transvenous pacer in place, site c/d/i. chest: tachypneic, labored, using accessory muscles. bilateral coarse rales. cv: transvenous pacer in place. pacer dependent. VVI @ 80. paced rhythm. abd: soft, nontender, nondistended, no guarding. extr: bilateral groin sites with dressings c/d/i. no hematoma. distal pulses palpable. neuro: Awake alert oriented x3, moving all 4 extremities Assessment and Plan - Assessment and Plan Plan: Assessment: 73yF POD 0 s/p TAVR via groin access, complicated by third degree heart block and acute severe pulmonary edema with associated hypoxic respiratory failure. differential diagnosis would include negative pressure pulmonary edema from diastolic heart failure exacerbation vs. protamine- associated pulmonary edema. continue bipap and supportive care. Acute hypoxic and hypercarbic respiratory failure Acute severe pulmonary edema COPD - nebs -Off Bipap, tolerating nasal cannula -Status post diuresis Third degree heart block - keep transvenous pacer - VVI @ 80 -Scheduled for permanent pacemaker placement for 07/24 s/p TAVR 07/23 via groin access - hold mivf - lasix as above - anticoagulation per Dr. Maier - close uop monitoring - groin watch Discussed with Dr. Maier.
[2018-07-24] MEDS ORDERED: Lidocaine PF 1% Inj 5 ML Syringe OTHER ONE (16:25)
[2018-07-24] MEDS ORDERED: Sodium Chlor 0.9% Inj 250 ML ONE (16:32)
[2018-07-24] MEDS ORDERED: Lidocaine 2% Inj 50 ML Vial ONE (16:32)
[2018-07-24] MEDS ORDERED: ceFAZolin 1 GM Premix Inj 2 GM/100 ML FROZ.PIGGY IV.SIG ONE (16:32)
--- NOTE | 2018-07-24 17:22 | P.PCNCA ---
Dual PPM Implantation - Dual PPM Implantation Procedure Date: 07/24/18 Dual PPM Implantation: PROCEDURE: Dual chamber permanent pacemaker implantation. INDICATIONS FOR PROCEDURE: Maria Teresa Rodriguez is a 73-year-old Fwith hx of HBP aortic stenosis , SP TAVR, developed complete AV block, referred for pacemaker insertion. The risks, the nature, and the benefit of the procedure were clearly stated to the patient. The risks include pneumothorax, cardiac perforation, stroke and even . The patient understood and agreed to proceed. PROCEDURE After written informed consent was obtained, the patient was transferred to the EP lab and was prepped and draped in the usual sterile fashion. Conscious sedation was initiated and maintained throughout the procedure by the anesthesiologist. Once sedation was verified, the left infraclavicular area was with 2% Xylocaine. Using modified Seldinger technique, the left subclavian vein was cannulated on two occasions and two guidewires were advanced. Then, using a #11 blade scalpel, a 2 cm was made two fingerbreadths below the left clavicle. This incision was then taken down through the deep fascial layer using Bovie cautery and blunt dissection. Into the inferomedial direction, device pocket was dissected, then the wire was dissected into the pocket. A 2- 0 Vicryl suture was placed around the wire to prevent backbleeding. At this point, over the lateral wire, an 8-Welsh dilator and introducer was advanced. As the dilator and wire were removed, an active fixation right ventricular pacing and sensing lead was advanced. After adequate pacing and sensing thresholds were obtained, the lead was secured in the pocket using 2-0 Ethibond suture. Then, over the remaining wire, an 8-Welsh dilator and introducer was advanced. As the dilator and wire were removed, an active fixation right atrial pacing and sensing lead was advanced. After adequate pacing and sensing thresholds were obtained, the lead was secured into the pocket using 2-0 Ethibond suture. At that point, the pocket was copiously irrigated using antibiotic solution. The leads were connected to the generator and placed into the pocket. I did proceed with wound closure. The deep fascial layer was approximated using 2-0 Vicryl suture in a continuous fashion. The subcutaneous layer was approximated with 2-0 Vicryl suture in a continuous fashion. The subcuticular layer was approximated with 2-0 Vicryl suture in a continuous fashion. Dermabond adhesive was applied to the wound followed by sterile pressure dressing. There was no complication. The patient tolerated procedure. Blood loss minimal. IMPLANTED HARDWARE The permanent pacemaker is a [employer]. Model # [id number], serial number [id number]. The right atrial pacing and sensing lead is a [employer]. model number 2088TC-52, serial number [id number]. The right ventricular pacing and sensing lead is a [employer] model number 2088TC- 52, serial number [id number]. THRESHOLDS The right atrial pacing threshold in the bipolar mode was 0.75V @ o.5 milliseconds, lead impedance 400 ohms and P-wave at 4.0 millivolts. The right ventricular pacing threshold in the bipolar mode was 0.75 @ 0.5 milliseconds, lead impedance 780 ohms and R-wave cannot be measured. Patient is pacer dependent. SETTINGS The device was set in the DDD60, upper limit 120 beats per minute. Hysteresis and mode switch are on. CONCLUSIONS: Successful permanent pacemaker implantation. COMMENT AND RECOMMENDATION The patient will be transferred to the telemetry unit and will be observed. When stable, the patient can be discharged home.
--- NOTE | 2018-07-24 17:41 | CATHPROC ---
Patient Name: Maria Teresa Rodriguez Study #: [id number] Initial MD: Dafne Woods Date of : 1945 Study Date: 07/24/2018 Cardiac Catheterization Report 07/24/2018 5:41:09 PM Financial #: [id number] 1 of 8 Patient Name: Maria Teresa Rodriguez Study #: [id number] Initial MD: Dafne Woods Date of : 1945 Study Date: 07/24/2018 Entire Case Report Patient Information Patient Name Maria Teresa Rodriguez Date of 1945 Age 73 years Financial # [id number] Gender F AlternateID Lab Number 6 Room Number 447 Height (in) 61.0 Height (cm) 154.9 BSA 1.68 Weight (lbs) 151.8 Weight (kg) 69.0 Patient Address/Phone Number Home Address [facility] Home Phone Number [address] [facility] [phone] Study Information Study Number Admission Scheduled Start Study Start [id number] Jul 23 2018 5:47AM 07/24/2018 Jul 24 2018 4:16PM [place] [facility] Cardiac Catheterization Admit Source Facility Department Other [facility] - Entry Level Automotive Technician Physician and Clinical Staff Initial Dafne Siegel [employer] Una March,ROPE TOW OPERATOR Other Anesthesia, BUSINESS RISK CONSULTANT Recorder Flaca De Guzman,LESLEE Scrub Jong Doherty,RT(R) Procedures Performed Procedure Lead Insertion 07/24/2018 5:41:09 PM Financial #: [id number] 2 of 8 Patient Name: Maria Teresa Rodriguez Study #: [id number] Initial MD: Dafne Woods Date of : 1945 Study Date: 07/24/2018 Equipment Time Software Engineer Developer Description Size Mfg Part Number Used/Scraped DERMABOND, ADHESIVE SKIN [id number] 16:17 CORDIS/PACER * Used GLUE MINI *[id number] 16:17 [employer] BLANKET,WARM AIR CCL * Used *[id number]-1103 16:17 [employer] SUTURE, STRIP PLUS 1/2" * Used *[id number] 16:17 MEDLINE PACER ESCOBAR, LIMB * 2530 *[id number] Used [id number] 16:17 MEDLINE PACER PACK, PACER CUSTOM * Used *[id number] 17:04 [employer] PACER SAFE SHEATH, FR7, 13CM FR 7 [id number] Used 16:47 Needle Sponge Count 2 22 Used 16:47 Needle Sponge Count 20 200 Used 16:47 Needle Sponge Count 3 3 Used SUTURE, 0 ETHIBOND [CT1] (CX21D), 8pk SUTURE, 2-0 VICRYL [CT1] ([id number]) SUTURE, 2-0 VICRYL [CT1] ([id number]) LEAD, TENDRIL STS 2088TC 17:02 [employer] 52CM 2088TC/52CM Used 52CM LEAD, TENDRIL STS 2088TC 17:02 [employer] 58CM 2088TC/58CM Used 58CM PACEMAKER, ASSURITY DR BENITEZ 17:08 [employer] [id number] Used MRI [facility] PAD, ELECTROSURGICAL 16:17 * [id number] *[id number] Used SURGICAL [employer] [id number] 16:17 [employer] MARICARMEN. / * Used *09931 Equipment Model, Serial, Lot Number and Expiration Data Description Model Number Serial Number Lot Number Expiration Date LEAD, TENDRIL STS 2088TC 52CM 2088tc-52 [id number] 04-15-2021 LEAD, TENDRIL STS 2088TC 58CM 2088tc-58 [id number] 06-15-2021 PACEMAKER, ASSURITY DR BENITEZ MRI [id number] 12-15-2019 Insurance Information Insurance Payor Private Health Insurance Third Alliance Party Third Alliance Party Number [employer] History: Allergies Allergy Reaction Sulfa (Sulfonamide Antibiotics) HIVES 07/24/2018 5:41:09 PM Financial #: [id number] Patient Name: Maria Teresa Rodriguez Study #: [id number] Initial MD: Dafne Woods Date of : 1945 Study Date: 07/24/2018 History: Risk Factors Hypertension Dyslipidemia Yes Yes Medication Medication Total Dose (Bolus/Oral) Medication Total Dosage/Unit 2% XYLOCAINE 50 mL Medications (Bolus/Oral) Medication Time Given Dosage/Unit Administered By Reason 2% XYLOCAINE 07/24/2018 4:59:32 PM 50 mL Dafne Woods 50 mL 2% XYLOCAINE given in lab by Anesthesia, BUSINESS RISK CONSULTANT in Left upper chest via Subcutaneous. Ordered by Dafne Woods. Medication (Drip) Medication Time Given Dosage/Unit Concentration/Unit Diluent (ml) Solution ANCEF 07/24/2018 4:43:51 PM 2 g 2 g ANCEF given in lab by Anesthesia, BUSINESS RISK CONSULTANT in Left Forearm via Peripheral IV. Ordered by Gissel Woods Reason: As per physicians verbal order. VANCOMYCIN DRIP 07/24/2018 4:43:01 PM 1 g 1 g VANCOMYCIN DRIP given in lab by Anesthesia, BUSINESS RISK CONSULTANT in Left Forearm via Peripheral IV. Ordered by Dafne [place]. Reason: As per physicians verbal order. 07/24/2018 5:41:09 PM Financial #: [id number] 4 of 8 Patient Name: Maria Teresa Rodriguez Study #: [id number] Initial MD: Dafne Woods Date of : 1945 Study Date: 07/24/2018 Initial Case Assessment Cardiovascular HR Rhythm NIBP Chest Pain 68 ELECTRIC POWER LINE EXAMINER 95/52 0 Edema Present Skin color Skin None Normal Warm Dry Circulatory - Right Pulses Radial 1 Scale (0,1,2,3,4,d) Circulatory - Left Pulses Radial 1 Scale (0,1,2,3,4,d) Circulatory - Lower Extremities Color Lower Right Color Lower Left Normal Normal Neurological State Oriented to time-place- Alert Moves all extremities person Respiration - General Respiration Rate SpO2 (%) (B/min) 18 94 Final Case Assessment Cardiovascular HR Rhythm NIBP Chest Pain 95 evp chief exploration officer 134/60 0 Edema Present Skin color Skin None Normal Warm Dry Neurological State Lethargic Moves all extremities Respiration - General Respiration Rate SpO2 (%) (B/min) 16 96 Comment: see anesthesia note 07/24/2018 5:41:09 PM Financial #: [id number] 5 of 8 Patient Name: Maria Teresa Rodriguez Study #: [id number] Initial MD: Dafne Woods Date of : 1945 Study Date: 07/24/2018 Chronological Log Time Study Chronological Log 16:25:29 Patient arrived via Bed. 16:25:30 Patient Name, D.O.B, / Armband Verified By R.N. 16:25:31 Consent signed by the physician and the patient and verified by the Entry Level Automotive Technician staff. 16:25:31 Pre-op and post- op instructions given; patient acknowledges understanding of instructions. 16:25:32 Verbal Stimulation=2 Physical Stimulation=2 Airway=2 Respiration=2 TOTAL=8. (0=absent, 1=li mited, 2=present) 16:25:33 Anesthesia at bedside. Assumes care of patient. 16:25:35 Patient has been NPO for More than 6Hrs. 16:25:36 Skin Breakdown- 16:25:37 Patient Warmer Placed on the Table. 16:25:38 Disposable Defibrillator Pads Placed On Patient. 16:25:40 Dennys Prominences Protected 16:25:40 A # 20 IV was noted in the Forearm (left). Grade = 0 0.9NSKVO 16:25:42 History and physical on the chart or being dictated. 16:27:03 MD arrived. 16:40:25 Bovie ground pad applied to: RIGHT THIGH 16:40:29 Table restraints applied according to hospital policy 16:41:41 Upper Chest Prepped Times Two. 1 g VANCOMYCIN DRIP given in lab by Anesthesia, BUSINESS RISK CONSULTANT in Left Forearm via Peripheral IV. Ordered by Dafne Woods. 16:43:01 Reason: As per physicians verbal order. 2 g ANCEF given in lab by Anesthesia, BUSINESS RISK CONSULTANT in Left Forearm via Peripheral IV. Ordered by Dafne Woods. Reason: As 16:43:51 per physicians verbal order. Assessment: Initial Case, HR=68 BPM, Rhythm=ELECTRIC POWER LINE EXAMINER, NIBP=95/52 mmhg, Chest Pain=0, Edema=None, [place] r=Normal, Skin = Warm, Dry Right Pulses: Radial=1 Left Pulses: Radial=1 16:43:51 Lower Right Extremities: Color=Normal Lower Left Extremities: Color=Normal Neurological: State=Alert, Ox3, MENSAH Respiration: Resp=18 B/min, SpO2=94 % First Sponge And Instrument Count Done by Una March RCIS. 16:46:36 Hypo's: 3, Sponges: 20, Bovie/scratch: 2 Sutures: 10, Blades: 1, Instruments: 26, Syveck Patches: 0 Verified w DB 16:55:14 Reference ECG taken Time Out. Correct patient, procedure, procedure equipment, site and side verified with physicia n present. Time 16:59:00 concurred by MD, individual staff and BUSINESS RISK CONSULTANT. Time Out #2 - Consents verified, patient in correct position, all results are labled and displa yed, safety precautions 16:59:18 taken, antibiotics administered. Time out concurred by MD, individual staff and BUSINESS RISK CONSULTANT in procedu re 16:59:30 Case Start 50 mL 2% XYLOCAINE given in lab by Anesthesia, BUSINESS RISK CONSULTANT in Left upper chest via Subcutaneous. Order ed by Peggy, 16:59:32 Dafne. 07/24/2018 5:41:09 PM Financial #: [id number] Patient Name: Maria Teresa Rodriguez Study #: [id number] Initial MD: Dafne Woods Date of : 1945 Study Date: 07/24/2018 17:00:33 Vascular access was obtained in the Subclav. Vein (Lft. 17:00:46 Wire inserted 17:00:52 Vascular access was obtained in the Subclav. Vein (Lft. 17:00:55 Wire inserted 17:01:50 Surgical Incision Made. 17:03:52 A SAFE SHEATH, FR7, 13CM FR 7 was advanced into the Subclav. Vein (Lft using the Modified S eldinger technique. 17:04:53 A LEAD, TENDRIL STS 2088TC 58CM 58CM was inserted and positioned in the RV. 17:06:01 Lead placement verified under fluoroscopy 17:06:05 The RV lead impedance and threshold being tested. 17:06:07 The RV lead was sutured to the fascia. 17:09:00 A LEAD, TENDRIL STS 2088TC 52CM 52CM was inserted and positioned in the RA. 17:09:17 Lead placement verified under fluoroscopy 17:10:27 The RV lead impedance and threshold being tested. 17:10:30 The RV lead was sutured to the fascia. 17:14:06 Pocket flushed with antibiotic solution 17:14:41 PACU called. Spoke to Seven 17:14:46 Bedside Report will be given. 17:14:52 Implant Procedure was performed. 17:14:58 A PPM Implant . (Dual) Second Sponge And Instrument Count Done by Dafne Woods. 17:17:12 Hypo's: 3, Sponges: 20, Bovie/scratch: 2 Sutures: ~SUTURE~, Blades: 1, Instruments: ~INSTRU~, Syveck Patches: ~SYVECK PATCH~ verified w db 17:21:02 Temporary pm removed by DB per MD order. 17:24:15 Implantable Device card placed in patient's chart. 17:34:19 The pocket was closed. 17:34:30 Steri-strips and a sterile dressing applied to site. Final Sponge And Instrument Count Done by Una March RCIS. 17:34:36 Hypo's: 3, Sponges: 20, Bovie/scratch: 2 Sutures: 10, Blades: 1, Instruments: 26, Syveck Patches: 0 Verified w DB 17:39:46 Case End (Physician broke scrub) 17:39:49 No case complications noted. 17:39:50 Cine recording checked. Assessment: Final Case, HR=95 BPM, Rhythm=evp chief exploration officer, YIUB=194/60 mmhg, Chest Pain=0, Edema=None, Color =Normal, Skin = Warm, Dry 17:40:18 Neurological: State=Lethargic, MENSAH Respiration: Resp=16 B/min, SpO2=96 %, Comment=see anesthesia note 17:44:49 A sling was placed on the affected arm. 17:46:57 [facility] [place] to [facility] 07/24/2018 5:41:09 PM Financial #: [id number] Patient Name: Maria Teresa Rodriguez Study #: [id number] Initial MD: Dafne Woods Date of : 1945 Study Date: 07/24/2018 End Study - Contrast Media Used In Study Contrast Total Opened (mL) Total Used (mL) Total Wasted (mL) Unspecified 0 0 0 End Study - Radiation Exposure Fluoro Time (minutes) 1.8 End Study - Patient Disposition Complications Transferred To Interventional Outcome No Telemetry Bed successful 07/24/2018 5:41:09 PM Financial #: [id number]
[2018-07-24] MEDS ORDERED: fentaNYL Citrate Inj 100 MCG/2 ML Ampul ONE (18:03)
--- NOTE | 2018-07-24 18:27 | XR ---
EXAM DATE: 07/24/2018 6:20 PM EST AGE/SEX: 73 years / Female INDICATIONS: Status post pacemaker. CLINICAL DATA: This is the patient's initial encounter. Patient reports that signs and symptoms have been present for 1 day and indicates a pain score of 0/10. MEDICAL/SURGICAL HISTORY: . Carcinoma, cervical. Hypertension. Cardiovascular disease. Cholec ystectomy. Pacemaker. COMPARISON: [facility] [place], CHEST 1V SINGLE AP, 07/23/2018. . FINDINGS: Patchy parenchymal opacities of both lungs have improved considerably in the interim, especially the upper lobes. A small pleural effusion is likely on the left. I don't see a pneumothorax. There is a new left subclavian transvenous cardiac pacer with 2 leads one in the right atrium and one near the right ventricular apex. New right IJ central venous catheter, tip in the superior vena cava. CONCLUSION: 1. New cardiac pacer as described. No pneumothorax. 2. Decreased parenchymal consolidation of both lungs, especially the upper lobes. 3. Right IJ line appears to have been changed out, tip in the superior vena cava. Electronically signed by: Kevin Cooper MD 07/24/2018 6:26 PM EST
[2018-07-24] MEDS: ceFAZolin 2 GM Premix Inj 2 GM/50 ML PIGGYBACK IV.SIG SCH (20:15)
[2018-07-25] MEDS: ceFAZolin 2 GM Premix Inj 2 GM/50 ML PIGGYBACK IV.SIG SCH ×2 (06:10→11:19)
--- NOTE | 2018-07-25 07:42 | P.DS ---
<Papi Escamilla - Last Filed: 07/25/18 07:33> Date of admission: 07/23/18 05:47 Primary care physician: Sean Hager MD Anticipated date of discharge: 07/25/18 Brief History from admission: This is a 73-year-old female with past medical history of arthritis, hyperlipidemia, hypertension, osteoporosis, thyroid disease, and recent colonic bleeding who was diagnosed with severe aortic valve stenosis. Patient underwent cardiac catheterization which did not reveal hemodynamically significant obstructive coronary disease. Due to cardiovascular risk factors she was felt to be higher risk for surgical aortic valve replacement and referred for consideration of transcatheter aortic valve replacement. Patient has been cleared by gastroenterology after recent gastrointestinal bleeding episode. Patient has been compliant with both aspirin and Plavix over the course of the past 2 weeks without any bleeding. Her hemoglobins been stable. Patient is here today for elective transcatheter aortic valve replacement. Patient update on day of discharge: Doing much better today. No further shortness of breath. Sitting in chair on room air. Denies any chest pain. Denies any issue with groin access sites. Had pacemaker placed yesterday. Limited echo yesterday with normal valve function. DS: Diagnosis - Discharge Diagnosis (1) Severe aortic valve stenosis Status: Acute (2) Chronic diastolic (congestive) heart failure Status: Acute DS: Summary Hospital Course: Patient underwent TAVR on 07/23/18. Postoperative course was complicated by flash pulmonary edema which improved with diuresis and BiPAP. Patient also required postoperative transvenous pacing and ultimately permanent pacemaker placement with electrophysiology on 07/24/18. Stable and back to respiratory baseline with no further complications on the day of discharge. - Time Spent with Patient Total time spent providing and/or coordinating discharge services: Greater than 30 minutes Exam Vital signs: Vital Signs 07/24/18 09:58 07/24/18 11:00 07/24/18 15:00 Temperature 98.1 F 97.9 F Pulse Rate 69 69 Respiratory Rate 18 18 Blood Pressure 116/55 L 157/70 H Pulse Oximetry 94 L 94 L 98 07/24/18 18:00 07/24/18 18:10 07/24/18 18:15 Temperature 99 F Pulse Rate 92 H 90 87 Respiratory Rate 18 17 Blood Pressure 133/85 123/56 L 117/55 L Pulse Oximetry 93 L 92 L 94 L 07/24/18 18:30 07/24/18 18:45 07/24/18 19:00 Temperature 98.8 F Pulse Rate 87 88 85 Respiratory Rate 16 16 16 Blood Pressure 127/60 120/62 133/63 Pulse Oximetry 92 L 93 L 94 L 07/24/18 19:15 07/24/18 19:20 07/24/18 20:05 Temperature Pulse Rate 88 Respiratory Rate 16 Blood Pressure 134/66 Pulse Oximetry 94 L 94 L 94 L 07/24/18 23:00 07/25/18 03:00 07/25/18 07:00 Temperature 98.2 F 97.4 F L 97.5 F L Pulse Rate 84 81 78 Respiratory Rate 20 18 Blood Pressure 130/70 126/70 113/68 Pulse Oximetry 97 95 98 Intake & Output 07/24/18 07/25/18 07/25/18 18:59 06:59 18:59 Intake Total 50 / 50 Output Total 150 / 150 Balance -100 / -100 Weight 154 lb 5.177 oz Intake: IV 50 / 50 Ancef 2 GM Premix Inj 2 gm In 50 / 50 50 ml @ 100 mls/hr IV.SIG Q8H KORY Rx#:[id number] Output: Urine 150 / 150 Other: # Voids 2 # Incontinent Voids 2 Narrative: GENERAL: Well-developed well-nourished. In no acute distress. NECK: No carotid bruits. No JVD. CARDIOVASCULAR: Regular rate and rhythm. No murmur appreciated. Pacemaker in place in left chest wall with clean dressing. RESPIRATORY: No accessory muscle use. Clear to auscultation. Breath sounds equal bilaterally. MUSCULOSKELETAL: No clubbing or cyanosis. No edema. NEUROLOGICAL: Awake and alert. Normal speech. Results Procedures completed during hospitalization: TAVR 07/27/18 Permanent pacemaker placement Labs on day of discharge: Labs from last 24 hours 07/23/18 06:53 MTS Gel Crossmatch See Detail - Impressions ITS Impressions Chest X-Ray 07/24/18 00:00 CONCLUSION: 1. New cardiac pacer as described. No pneumothorax. 2. Decreased parenchymal consolidation of both lungs, especially the upper lobes. 3. Right IJ line appears to have been changed out, tip in the superior vena cava. <Johnathon Maier - Last Filed: 07/25/18 10:58> Date of admission: 07/23/18 05:47 Primary care physician: Sean Hager MD DS: Diagnosis - Discharge Diagnosis (1) Severe aortic valve stenosis Status: Acute (2) Chronic diastolic (congestive) heart failure Status: Acute DS: Summary - Time Spent with Patient Total time spent providing and/or coordinating discharge services: Exam Vital signs: Vital Signs 07/24/18 11:00 07/24/18 15:00 07/24/18 18:00 Temperature 98.1 F 97.9 F 99 F Pulse Rate 69 69 92 H Respiratory Rate 18 18 18 Blood Pressure 116/55 L 157/70 H 133/85 Pulse Oximetry 94 L 98 93 L 07/24/18 18:10 07/24/18 18:15 07/24/18 18:30 Temperature Pulse Rate 90 87 87 Respiratory Rate 17 16 Blood Pressure 123/56 L 117/55 L 127/60 Pulse Oximetry 92 L 94 L 92 L 07/24/18 18:45 07/24/18 19:00 07/24/18 19:15 Temperature 98.8 F Pulse Rate 88 75 88 Respiratory Rate 16 16 16 Blood Pressure 120/62 133/63 134/66 Pulse Oximetry 93 L 94 L 94 L 07/24/18 19:20 07/24/18 20:05 07/24/18 23:00 Temperature 98.2 F Pulse Rate 90 Respiratory Rate 20 Blood Pressure 130/70 Pulse Oximetry 94 L 94 L 97 07/25/18 03:00 07/25/18 07:00 07/25/18 08:26 Temperature 97.4 F L 97.5 F L Pulse Rate 75 78 Respiratory Rate 18 Blood Pressure 126/70 113/68 Pulse Oximetry 95 98 97 Intake & Output 07/24/18 07/25/18 07/25/18 18:59 06:59 18:59 Intake Total 50 / 50 150 / 150 Output Total 150 / 150 Balance -100 / -100 150 / 150 Weight 70 kg Intake: IV 50 / 50 150 / 150 Ancef 2 GM Premix Inj 2 gm In 50 / 50 50 / 50 50 ml @ 100 mls/hr IV.SIG Q8H KORY Rx#:[id number] Output: Urine 150 / 150 Other: # Voids 2 # Incontinent Voids 2 Results - Impressions ITS Impressions Chest X-Ray 07/24/18 00:00 CONCLUSION: 1. New cardiac pacer as described. No pneumothorax. 2. Decreased parenchymal consolidation of both lungs, especially the upper lobes. 3. Right IJ line appears to have been changed out, tip in the superior vena cava. Attestation Attestation: Patient is feeling well. Patient ambulated about 350 feet and did have transient hypoxemia with oxygen saturations in the mid 80s. Upon recovery on room air her oxygen saturations back up to 93%. Lung exam still has fine crackles We will administer Lasix 40 mg IV and see if we can diurese her a little bit more. We will see how she does throughout the day, if she is feeling better and maintaining oxygen saturation, we still may be able to anticipate discharge for later. Discharge Plan - Discharge Order Discharge Orders: Discharge Order (Routine); Ordered 07/25/18 Ordered By: Papi Escamilla - Discharge Details Anticipated Discharge Date: 07/25/18 - Physicians Team Primary Care Provider: Sean Hager V Attending Provider: Johnathon Maier Other Providers: Dafne Woods MD ; eKv Iverson MD ; Muna Toro - Rxs /Orders / Referrals /Forms Prescriptions: Continue amlodipine 5 mg Tablet 5 mg PO DAILY aspirin [Aspirin Low Dose] 81 mg Tablet,Delayed Release (Dr/Ec) 81 mg PO DAILY atorvastatin 20 mg Tablet 20 mg PO DAILY clopidogrel 75 mg Tablet 75 mg PO DAILY famotidine 20 mg Tablet 20 mg PO BID folic acid 1 mg Tablet 1 mg PO DAILY leflunomide 20 mg Tablet 20 mg PO DAILY levothyroxine 100 mcg Tablet 100 mcg PO DAILY paroxetine HCl 40 mg Tablet 40 mg PO DAILY trazodone 50 mg Tablet 50 mg PO DAILY Referrals: Sean Hager MD [Primary Care Provider] - See Instructions - Discharge Instructions Patient Printed Instructions: Transcatheter Aortic Valve Replacement (DC), Pacemaker (DC) Additional Instructions: Please call your PCP and make follow up appointment for next one to two weeks. Call Juliocesar Cantu RN [employer] with any questions or concerns. 30 DAY FOLLOW UP ECHOCARDIOGRAM 08/25/18 10AM [facility] [phone] [address] [place] [address] [address] FO[address] UP [address] JOINER 09/02/18 945AM [facility] [phone] [address] [place] [address] 1 YEAR TAVR FOLLOW UP ECHOCARDIOGRAM 07/27/19 915AM [facility] [phone] [place] [address] [address] UP [address] JOINER 08/03/19 10AM [facility] [phone] [place] [address]
[2018-07-25] MEDS: Ferrous Sulfate 325 MG Tablet PO SCH (08:32)
[2018-07-25] MEDS ORDERED: Furosemide 20 MG Tablet PO SCH (09:00)
[2018-07-25 11:44] VITALS: BP 164/94; PULSE 113; RESP 20; TEMP 97.9
--- NOTE | 2018-07-25 16:40 | ECG ---
Date Performed: 07/24/2018 Time Performed: 07:35:22 PTAGE: 73 years EKG: Ventricular pacing. Pacemaker rhythm - no further analysis Since previous tracing, no signi ficant change noted Abnormal ECG PREVIOUS TRACING : 07/23/2018 11.03 DOCTOR: Jadon Souza Interpretating Date/Time 07/25/2018 16:39:09
--- NOTE | 2018-07-25 16:42 | ECG ---
Date Performed: 07/24/2018 Time Performed: 18:17:36 PTAGE: 73 years EKG: ELECTRONIC VENTRICULAR PACEMAKER Since previous tracing, no significant change noted ABNORM AL RHYTHM ECG PREVIOUS TRACING : 07/24/2018 07.35 DOCTOR: Jadon Souza Interpretating Date/Time 07/25/2018 16:39:56
--- NOTE | 2018-07-25 16:43 | ECG ---
Date Performed: 07/25/2018 Time Performed: 05:34:58 PTAGE: 73 years EKG: Sinus rhythm . Left axis deviation IV conduction defect Inferior infarct - age undetermined Possible anteroseptal infarct - age undetermined Lateral ST-T changes may be due to myocardial ischemia Since previous trac ing, no significant change noted Abnormal ECG PREVIOUS TRACING : 07/24/2018 18.17 DOCTOR: Jadon Souza Interpretating Date/Time 07/25/2018 16:40:13
[2018-07-25 16:55] VITALS: O2SAT 93
--- NOTE | 2018-07-26 06:16 | ECG ---
Date Performed: 07/25/2018 Time Performed: 11:07:56 PTAGE: 73 years EKG: Probable dual chamber pacemaker No significant change from prior electrocardiogram. DOCTOR: Wale Thibodeaux Interpretating Date/Time 07/26/2018 06:15:11
== END 2018-07-25 18:12 | disposition home or self-care (01) ==
LOC: HSDI 05:47 → HDIC 05:52 → HCVI 10:10 → HCPC 07-25 12:10
PROVIDERS: ADMIT Internal Medicine; ATTEND Internal Medicine